=== PATIENT | male | born 1980 | race Hispanic/Latino ===

== ENCOUNTER 2017-01-30 01:19 | Emergency (ER) | payer OTHER ==
[~2017-01-30] VITALS: Ht 185.4 cm; Wt 99.8 kg
[2017-01-30 01:55] VITALS: BP 136/74
== END 2017-01-30 02:33 | disposition home or self-care (01) ==
LOC: ER 01:19
DX: Z77.098 Contact with and (suspected) exposure to other hazardous, chiefly nonmedicinal, chemicals (principal); Y99.0 Civilian activity done for income or pay
CPT/HCPCS: 99282